=== PATIENT | female | born 2000 | race Hispanic/Latino ===

== ENCOUNTER 2018-09-25 18:24 | Emergency (ER) | payer OTHER ==
[~2018-09-25] VITALS: Ht 175.3 cm; Wt 90.7 kg
[2018-09-25 19:24] LABS: HCG,QUAL RESULT NEGATIVE (NEGATIVE)
[2018-09-25 19:26] LABS: APPEARANCE,URINE Cloudy (CLEAR); BILIRUBIN,URINE Negative (NEGATIVE); COLOR,URINE Yellow (YELLOW); GLUCOSE, URINE (UA) Negative (NEGATIVE); KETONES,URINE Negative (NEGATIVE); LEUKOCYTE ESTERASE ,URINE Large (NEGATIVE); NITRATE,URINE Positive (NEGATIVE); OCCULT BLOOD,URINE Negative (NEGATIVE); PH,URINE 5.5 (5.0-8.0); PROTEIN,URINE Negative (NEGATIVE)
[2018-09-25 19:36] LABS: BASOPHILS % (AUTO) 0.7 % (0.0-5.0); EOSINOPHILS % (AUTO) 1.5 % (0.0-8.0); HEMATOCRIT 27.6 % (36-48); LYMPHOCYTES % (AUTO) 24.6 % (21.0-51.0); MEAN CORPUSCULAR HEMOGLOBIN 18.7 pg (27.0-33.0); MEAN CORPUSCULAR HGB CONC 30.3 g/dL (32.0-36.0); MEAN CORPUSCULAR VOLUME 61.8 fL (80-100); MONOCYTES % (AUTO) 9.1 % (3.0-13.0); NEUTROPHILS % (AUTO) 64.1 % (40.0-77.0); NUCLEATED RED BLOOD CELLS 0.1 % (0.0-0.19); PLATELET COUNT (AUTO) 380 K/uL (130-400); RED BLOOD CELL COUNT(AUTO) 4.48 MIL/uL (4.00-5.50); RED CELL DISTRIBUTION WIDTH 16.9 % (11.0-15.5); WHITE BLOOD COUNT (AUTO) 10.6 K/uL (4.8-10.8)
[2018-09-25 19:38] LABS: BACTERIA,URINE Many /HPF (None Seen); RBC,URINE None Seen /HPF (0-1)
[2018-09-25 19:51] LABS: CREATININE 0.6 mg/dL (0.5-1.5); POTASSIUM 3.7 mmol/L (3.5-5.1)
[2018-09-25 19:55] LABS: BILIRUBIN,TOTAL 0.2 mg/dL (0.2-1.0); TOTAL PROTEIN, SERUM 7.8 g/dL (6.0-8.3)
[2018-09-25] MEDS ORDERED: NITROFURANTOIN MONOHYD/M-CRYST 100 MG CAPSULE PO ONE (20:23)
[2018-09-27] MEDS ORDERED: ASPIRIN 81MG TAB.CHEW PO SCH (09:00)
== END 2018-09-25 21:19 | disposition home or self-care (01) ==
LOC: EDH 18:24
DX: N39.0 Urinary tract infection, site not specified (principal); R10.10 Upper abdominal pain, unspecified; F41.9 Anxiety disorder, unspecified; Z88.8 Allergy status to other drugs, medicaments and biological substances
CPT/HCPCS: 36415; 80053; 81001; 81025; 83690; 85025

== ENCOUNTER 2019-01-27 18:17 | Emergency (ER) | payer MEDICAID, OTHER ==
[2019-01-27 18:45] LABS: APPEARANCE,URINE Clear (CLEAR); BILIRUBIN,URINE Negative (NEGATIVE); COLOR,URINE Yellow (YELLOW); GLUCOSE, URINE (UA) Negative (NEGATIVE); KETONES,URINE Negative (NEGATIVE); LEUKOCYTE ESTERASE ,URINE Trace (NEGATIVE); NITRATE,URINE Negative (NEGATIVE); OCCULT BLOOD,URINE Negative (NEGATIVE); PH,URINE 7.5 (5.0-8.0); PROTEIN,URINE Negative (NEGATIVE)
[2019-01-27 18:53] LABS: BACTERIA,URINE Few /HPF (None Seen); MUCUS,URINE Rare LPF (None Seen); RBC,URINE 0-1 /HPF (0-1); SQUAMOUS EPITHELIAL CELL,UR Few /HPF (0-2)
== END 2019-01-27 19:35 | disposition home or self-care (01) ==
LOC: EDH 18:17
DX: O99.342 Other mental disorders complicating pregnancy, second trimester (principal); F41.9 Anxiety disorder, unspecified; Z3A.21 21 weeks gestation of pregnancy
CPT/HCPCS: 81001